=== PATIENT | female | born 1955 | race Caucasian/White ===

== ENCOUNTER 2016-05-06 05:21 | Day surgery (SDC) | payer BC ==
[~2016-05-06 05:21] MED LIST: COMBIGAN EYE DRO5 M1 EACH EYE; CPAP; GLUCOPHAGE500 M3 PO; LEVOTHYROXINE112 MC3 PO
== END 2016-05-06 10:20 ==
LOC: SRG 05:21 → SHSB 05:22 → ORW 07:23 → PACU 08:17 → SHSB 09:00
PROC: 0HBU0ZX Excision of Left Breast, Open Approach, Diagnostic (ICD-10-PCS; principal; 2016-05-06)
DX: N60.32 Fibrosclerosis of left breast (principal); N60.92 Unspecified benign mammary dysplasia of left breast; E03.9 Hypothyroidism, unspecified; G47.30 Sleep apnea, unspecified; E11.9 Type 2 diabetes mellitus without complications; H26.9 Unspecified cataract; E66.01 Morbid (severe) obesity due to excess calories; Z99.81 Dependence on supplemental oxygen; Z79.899 Other long term (current) drug therapy; Z90.710 Acquired absence of both cervix and uterus
CPT/HCPCS: J0690; J2250; J2765